=== PATIENT | female | born 1970 | race Caucasian/White ===

== ENCOUNTER 2018-09-09 22:30 | Emergency (ER) | payer SELFPAY ==
[~2018-09-09] VITALS: Ht 160 cm; Wt 69.5 kg
--- NOTE | 2018-09-09 23:20 | EKG ---
[facility] [address] [place], [place] [address] Signed Normal sinus rhythm Normal ECG No previous ECGs available Confirmed by SULLY CHATTERJEE DO ([id number]) on 09/09/2018 11:20:43 PM Electronically Signed By: SULLY CHATTERJEE DO 09/09/18 2320 PATIENT NAME: HAWK WASHINGTON Electrocardiogram DATE OF : 66 PHYSICIAN: SULLY CHATTERJEE DO REPORT #: [id number] REPORT IS CONFIDENTIAL AND NOT TO BE RELEASED WITHOUT AUTHORIZATION
[2018-09-09] MEDS ORDERED: PROAIR HFA8.5 GM INH (23:50)
[2018-09-09] MEDS ORDERED: ZITHROMAX250 MG PO (23:50)
[2018-09-09] MEDS ORDERED: PREDNISONE20 MG PO ×2 (23:50→23:52)
[2018-09-09] MEDS ORDERED: TESSALON PERLE100 MG PO (23:50)
== END 2018-09-10 00:05 | disposition home or self-care (01) ==
LOC: ED 22:30
DX: J40 Bronchitis, not specified as acute or chronic (principal); F17.200 Nicotine dependence, unspecified, uncomplicated; Z88.8 Allergy status to other drugs, medicaments and biological substances; Z79.52 Long term (current) use of systemic steroids
CPT/HCPCS: 71046; 80048; 84484; 85025; 93005; 93010; 94640; 99285-25; J1100

== ENCOUNTER 2019-01-16 19:51 | Emergency (ER) | payer SELFPAY ==
[~2019-01-16] VITALS: Ht 160 cm; Wt 68.0 kg
[~2019-01-16 19:51] MED LIST: PREDNISONE20 MG PO; PROAIR HFA8.5 GM INH; TESSALON PERLE100 MG PO; ZITHROMAX250 MG PO
[2019-01-16] MEDS ORDERED: PENICILLIN V P500 MG PO (20:40)
== END 2019-01-16 21:04 | disposition home or self-care (01) ==
LOC: ED 19:51
DX: K02.9 Dental caries, unspecified (principal); F17.200 Nicotine dependence, unspecified, uncomplicated; Z88.6 Allergy status to analgesic agent
CPT/HCPCS: 99282